=== PATIENT | male | born 1940 | race Caucasian/White ===

== ENCOUNTER 2018-02-03 07:46 | Emergency (ER) | payer MEDICARE, OTHER ==
[2018-02-03] MEDS ORDERED: ATORVASTATIN CA10 MG PO (07:55)
[2018-02-03] MEDS ORDERED: TOUJEO SOL300 UNIT/1 SQ (08:12)
[2018-02-03 09:00] VITALS: BP 126/66
== END 2018-02-03 08:27 | disposition home or self-care (01) ==
LOC: ED 07:46
DX: S51.812A Laceration without foreign body of left forearm, initial encounter (principal); S50.312A Abrasion of left elbow, initial encounter; W18.30XA Fall on same level, unspecified, initial encounter; Y92.59 Other trade areas as the place of occurrence of the external cause; E11.9 Type 2 diabetes mellitus without complications; Z79.4 Long term (current) use of insulin; Z79.899 Other long term (current) drug therapy